=== PATIENT | female | born 1960 | race Caucasian/White ===

== ENCOUNTER 2024-01-14 02:21 | Inpatient (IN) | payer OTHER, SELFPAY ==
[2024-01-13 22:59] VITALS: BP 156/102
[2024-01-13 23:45] LABS: % Basophils 0.3 % (0-2); % Eosinophils 2.6 % (0-6); % Immature Granulocytes 0.2 % (0-0.5); % Lymphocytes 24.3 % (20.5-51.1); % Monocytes 5.4 % (1.7-9.3); % Neutrophils 67.2 % (42.2-75.2); Absolute Eosinophils 0.2 10^3/uL (0-0.7); Absolute Lymphocytes 2.1 10^3/uL (1.2-3.4); Absolute Monocytes 0.5 10^3/uL (0.1-0.6); Absolute Neutrophils 5.8 10^3/uL (1.4-6.5); Hematocrit 32.5 % (37.0-47.0); Hemoglobin 11.1 g/dL (12.0-16.0); Mean Corp Hgb Conc. 34.2 g/dL (33.0-37.0); Mean Corpuscular Hgb 27.7 pg (27.0-31.0); Mean Platelet Volume 8.8 fL (7.4-10.4); Nucleated Red Blood Cells % 0 %; Platelet Count 309 10^3/uL (130-400); Red Blood Cell Count 4.01 10^6/uL (4.20-5.40); Red Cell Dist. Width 14.8 % (11.5-14.5); White Blood Cell Count 8.6 10^3/uL (4.8-10.8)
[2024-01-13 23:46] LABS: Urine Albumin Negative (Neg - Trace); Urine Bilirubin Negative (Negative); Urine Character Clear (Clear); Urine Color Yellow; Urine Glucose Negative (Negative); Urine Ketone Negative (Negative); Urine Leukocyte Negative (Negative); Urine Nitrite Negative (Negative); Urine Occult Blood Negative (Negative); Urine Urobilinogen Negative (Neg - 1+)
--- NOTE | 2024-01-13 23:48 | ED.SKININJ ---
HPI-Injury
General
Chief Complaint: Bite
Source: patient
Time Seen by Provider: 01/13/24 23:18
Travel History
Have you had any contact with someone who has COVID-19?: No
Do you have any symptoms of coronavirus? Fever > 100 degrees, chills, cough, shortness of breath, sore throat, loss of taste or smell, muscle aches, or headache?: No
History of Present Illness-Injury
Initial Injury comments:
This patient is a 63-year-old female who states that on Sunday she noted a area of blistering at the left lateral torso area that became increasingly painful. Since then, she describes it as becoming red, and then mojica, and then also wets. She
was seen in urgent care today and diagnosed with a brown recluse spider bite. She was put on clindamycin and told to proceed to the emergency department if she develops a fever. Later today she developed a fever which prompted her visit here.
Patient describes pain in this area, but denies muscle pain, generalized weakness, chest pain, shortness of breath, abdominal pain, nausea, vomiting, urinary symptoms. Patient is HIV positive, has not had her CD4 count checked in many months, but
most recent count was in the 600 range. Patient does not recall a specific spider bite but [place] is outside often.
Past History
Past History
ED Past Medical History: Other (COPD, HIV)
ED Past Surgical History: None
Social History
Tobacco: Non-smoker
Alcohol: Occasional
Drug: None
Living: alone
Phy Exam
Physical Exam
Physical Exam:
GENERAL: Alert , in no apparent distress
EYE: pupils equal and reactive
NECK: Supple, no significant adenopathy.
ENT: o/p clr, mmm.
CARDIAC: Regular rate and rhythm .
LUNGS: Clear breath sounds bilaterally, no acute respiratory distress, no wheezes/rales/rhonchi
ABDOMEN: Soft, without focal tenderness, no r/g, no cvat
NEUROLOGICAL: Alert and oriented, no focal neuro deficits
SKIN: Warm and dry, at L inferior lateral torso area there is a 16 X 20 cm area of redness with associated area of central ulceration and semi purulent appearing drainage. No fluctuance/crepitus/necrosis/bleeding. No streaking. Area is ttp.
Ulcer is shallow to level of st only.
MUSCULOSKELETAL: No edema, well perfused.
PSYCH: Normal and appropriate interaction.
Course
Orders/Labs/Results
Orders:
Orders
01/13/24 23:23
Electrocardiogram (*1) Urgent
Reason for Study: Other
Other Reason for Exam: Possible Sepsis
Cardiac Monitoring- Treatment ONCE
IV Insert/Care/Rem.- Treatment PRN
O2 Therapy [RESP] Urgent
Titrate/Wean O2 to maintain O2 sat greater than (%): 93
Special Instructions: TO MAINTAIN CONTINUOUS O2 SATS > OR = 93%
Pulse Ox/cont/shift [RESP] Urgent
Quantity: 1
Special Instructions: CONTINUOUS
01/13/24 23:24
EKG- Treatment ONCE
01/13/24 23:36
Complete Blood Count/With Diff Urgent
Comprehensive Metabolic Panel Urgent
Creatine Phosphokinase Urgent
Comment: ADD ON
LDH Urgent
Comment: ADD ON
Lactic Acid Q4H
Comment: ON ICE, CANCEL 2ND ORDER IF FIRST LACTIC ACID LEVEL <2
Phosphorus Urgent
Comment: ADD ON
Reticulocyte Count Urgent
Comment: ADD ON
Uric Acid Urgent
Comment: ADD ON
Urinalysis Reflex To Culture Urgent
Date Specimen was Collected: 01/13/24
Time Specimen was Collected: 23:24
Blood Culture Q30M
SOSA Source: Blood/Venous
Specimen Description:
Comment: FROM 2 SEPARATE SITES
01/13/24 23:46
Blood Culture Urgent
SOSA Source: Blood/Venous
Specimen Description:
01/13/24 23:49
PTT Urgent
Prothrombin Time Urgent
01/13/24 23:52
Add On- LAB Urgent
Tests Added?: reticulocyte count, phosphorus, uric acid, and CPK
01/13/24 23:56
Add On- LAB Urgent
Tests Added?: lactate dehydrogenase
01/14/24 00:30
Ketorolac [Toradol] 15 mg IV NOW STA
01/14/24 00:47
Vancomycin [Vancocin] 1,500 mg 0.9% Sodium Chloride [Nss] 20 ml 0.9% Sodium Chloride 250 ml [Nss] 250 ml IV NOW
01/14/24 00:57
Wound Culture [Wound/Abscess/Other Culture] Urgent
SOSA Source: Abdomen
Specimen Description:
Date Specimen was Collected: 01/14/24
Time Specimen was Collected: 00:46
01/14/24 01:10
Piperacillin/Tazo 3.375 Gram [Zosyn] 3.375 gram in 50 ml IV NOW
01/14/24 02:07
Cefepime HCl [Maxipime] 2,000 mg IV NOW STA
01/14/24 02:08
Admit/Transfer Patient As Directed
Co-Sign Provider:
Level of Care: Inpatient admission
Assign to:: Medical/Surgical
Physician / Group: Mateusz
Diagnosis: Cellulitis / SSTI
Reason for Hospitalization: Cellulitis / SSTI
Expected length of stay greater than two midnights?: Yes
ELOS- Estimated Length of Stay in days: 2
I certify the patient meets the requirements for IP care: Yes
Code Status As Directed
Resuscitation Status: Full Code
01/14/24 02:10
Sterile Water [Sterile Water For Injection] 10 ml IV NOW STA
01/14/24 03:00
Flush (0.9% Sodium Chloride) [Flush (Nss)] See Dose Instructions IV PER PROTOCOL
01/14/24 03:45
Acetaminophen [Tylenol] 650 mg PO Q4HPRN PRN
Albuterol Nebs [Ventolin Nebules] 2.5 mg INH R Q4HPRN PRN
HYDROmorphone [Dilaudid] 0.5 mg IV Q4HPRN PRN
01/14/24 03:45
Consult Notification Routine
Specialty to Notify: Infectious Disease
Date consulting provider notified: 01/14/24
Time consulting provider notified: 08:35
Notified:: Provider
INFECTIOUS DISEASE CONSULT Routine
Consulting Provider: Remberto Rosales
Was physician already notified: No
Reason for consult: Cellulitis / HIV positive
WOUND/OSTOMY CONSULT Routine
Reason for Consult: Lateral abdominal wound
Activity As Directed
Activity Level: Ambulate
I/O [Intake/ Output] As Directed
Frequency: Per unit guidelines
Vital Signs As Directed
Frequency: Per unit guidelines
Oxygen Therapy [O2 Therapy] [RESP] Routine
Titrate/Wean O2 to maintain O2 sat greater than (%): 94
DX Deep Vein Thrombosis Video Routine
01/14/24 05:27
Basic Metabolic Panel IN AM
CD4 Leukocyte Marker Profile [S] Routine
Complete Blood Count/No Diff IN AM
01/14/24 06:00
Ketorolac [Toradol] 15 mg IV Q6HPRN PRN
01/14/24 08:00
Bictegrav/Emtricit/Tenofov [Biktarvy 50-200-25 mg Tablet] 1 tablet PO DAILY
umeclidinium-vilanterol [Anoro Ellipta] 1 inh INH DAILY
01/14/24 10:00
Cefepime HCl [Maxipime] 2,000 mg IV Q8H
01/14/24 18:00
Enoxaparin Sodium [Lovenox] 40 mg SC QPM
Abnormal Lab Results
01/13/24
23:36
RBC 4.01 L 10^6/uL
(4.20-5.40)
Hgb 11.1 L g/dL
(12.0-16.0)
Hct 32.5 L %
(37.0-47.0)
RDW 14.8 H %
(11.5-14.5)
BUN 19 H mg/dl
(7-17)
Glucose 115 H mg/dl
(70-99)
Lactic Acid < 0.5 L mmol/L
(0.7-2.0)
Total Protein 9.5 H g/dl
(6.3-8.2)
01/13/24 23:36
01/13/24 23:36
Vital Signs
Initial and Last Documented VS:
Initial Vital Signs
Temp Pulse Resp BP Pulse Ox
100 F 106 22 156/102 97
01/13/24 22:59 01/13/24 22:59 01/13/24 22:59 01/13/24 22:59 01/13/24 22:59
Last Documented Vital Signs
Temp Pulse Resp BP Pulse Ox
99.5 F 80 18 114/73 98
01/14/24 15:39 01/14/24 15:39 01/14/24 15:39 01/14/24 15:39 01/14/24 15:39
*Critical Care Note
Total Time (30-74mins, 75-104mins- exclusive of procedures): Not Applicable
Update Note
Update Note:
Patient presents to the Emergency Department with skin rash
Number and Complexity of Problems Addressed at the Encounter
� Chronic conditions affecting care:
� Acute Exacerbation and/or Progression of Chronic Illness:
� Differential Diagnosis includes:but not limited to MRSA cellulitis, brown recluse bite, Strept infx, vasculitis, pyoderma granulos, etc.
Amount and/or Complexity of Data to be Reviewed and Analyzed
� I performed an independent evaluation of and my interpretation is:
EKG:
CT:
Xrays:
Laboratory Studies:generally unremkarable,
Other:
� Review of other/old records reveals:
� Clinical information was obtained by an independent historian:
� Prescriptions/Medications Considered but not given:
� Further testing considered but not performed:
Risk of Complications and/or Morbidity or Mortality of Patient Management
� Social determinants of health affecting care:
� Discussion with other providers (PCP, Hospitalists, Consultants, etc):
� Escalation of care including admission/observation vs risk of discharge considered:111am...pt overall stable...given HIV, fever, extent of skin findings, will treat with iv abx and observe overnight. TT to hospitalist. Not
septic, doubt nec fasc (pain manageable, no lab findings to suggest, not rapidly progressive, etc). Overall doubt Brown REcluse Spider bite.
ED Attending Note
-
Portions of this chart may have been created with voice recognition software.� Occasional wrong word or��sound alike� substitutions may have occurred due to the inherent limitations of voice recognition software.
Discharge Plan
Departure
Patient Disposition: Admit
Date of Disposition: 01/14/24
Time of Disposition: 01:12
Admit to: Med/Surg
Presentation/result/management discussed w/ accepting MD/DO: Hospitalist
Condition: Good
Discharge Problem:
Cellulitis
Interventions
Interventions:
*Risk Screen - Suicide Last Done: 01/14/24 03:34
*General Assessment Last Done: 01/13/24 23:42
*Neglect/Abuse Screening Last Done: 01/13/24 22:59
ED- Fall Risk Assessment Last Done: 01/14/24 00:21
*ED COVID-19 Vaccine History Last Done: 01/14/24 03:34
*Nursing Disposition Last Done: 01/14/24 03:34
ED-Skin Assessment Last Done: 01/14/24 00:21
Discharge Date and Time
Discharge Date/Time: 01/14/24 03:35
[2024-01-13 23:59] LABS: Lactic Acid < 0.5 mmol/L (0.7-2.0)
[2024-01-14] VITALS (7 sets, daily range): BP systolic 114–149; BP diastolic 73–102; BMI 19.1
[2024-01-14] LABS: ALT (SGPT) 33 U/L (0-35); AST (SGOT) 33 U/L (14-36); Alkaline Phosphatase 84 U/L (38-126); Blood Urea Nitrogen 19 mg/dl (7-17); Calcium 9.4 mg/dl (8.4-10.2); Carbon Dioxide 26 mmol/L (22-30); Chloride 102 mmol/L (98-107); Glucose 115 mg/dl (70-99); Potassium 4.4 mmol/L (3.5-5.1); Sodium 137 mmol/L (135-145); Total Bilirubin 0.4 mg/dl (0.2-1.3); Total Protein 9.5 g/dl (6.3-8.2); eGFR > 60.00
[2024-01-14 00:03] LABS: Reticulocyte Count 1.1 % (0.4-2.8)
[2024-01-14 00:05] LABS: LDH 226 U/L (120-246); Phosphorus 3.1 mg/dl (2.5-4.5)
[2024-01-14 00:06] LABS: INR 1.04; PT 13.4 Sec (11.4-14.6)
[2024-01-14 00:07] LABS: APTT 33.9 Sec (23.4-35.0)
[2024-01-14 00:12] LABS: Creatine Phosphokinase 101 U/L (30-135); Uric Acid 3.3 mg/dl (2.5-6.2)
--- NOTE | 2024-01-14 00:26 | WOUNDNOTE ---
Addendum entered by Tanya Morales RN 01/14/24 00:26:
left side.
Original Note:
[2024-01-14] MEDS: TORADOL 15 MG IV (00:34)
[2024-01-14] MEDS: VANCOCIN 300 ML IV (00:58)
[2024-01-14] MEDS: VANCOCIN 300 MG IV (00:58)
--- NOTE | 2024-01-14 02:11 | HPS.HSE ---
Family Physician
-
Family Physician: NOT KNOW UNKNOWN - PT DOES
Chief Complaint
-
Wound / Redness
History of Present Illness
Patient is a 63y F with PMH significant for COPD and HIV positivity who presents to ED complaining of pain, swelling and redness of the L side. Patient states that her symptoms started on Sunday with a small collection of clear blisters on
the L flank / lateral abdomen. These were painful at that time. There was no noted bite or injury. No skin lesion appreciated in that area prior to Sunday. Over the next several days, patient states that the blisters coalesced and the area
surrounding them became red, warm and tender. Her symptoms continued to progress and the blisters 'opened up' with clear / yellow drainage appreciated. The area became increasingly painful with larger area of surrounding redness. Today, patient
had chills in addition to her pain and presented to the ED for further evaluation.
Medical History
Past Medical History
Past Medical History: Reports Other
Additional Past Medical History:
COPD
HIV Positive
Past Surgical History: Reports Other
Additional Past Surgical History:
Epidural Hematoma Evacuation (traumatic)
Social History
Tobacco: Former Smoker (Quit smoking about 8 years ago.)
Alcohol: None
Drug: None
Family History
Family History: Not pertinent
Allergies / Home Medications
Allergies reflects when Allergies were last updated in [employer].
Home Medications with original date entered in [employer] [facility]
Allergy/Medication List:
Allergies
Allergy/AdvReac Type Severity Reaction Status Date / Time
Penicillins Allergy Intermediate Rash Verified 01/13/24 23:02
Home Medications
bictegravir 50 mg-emtricitabine 200 mg-tenofovir alafenam 25 mg tablet (Biktarvy) 1 tab PO DAILY 01/13/24
umeclidinium 62.5 mcg-vilanterol 25 mcg/actuation powdr for inhalation (Anoro Ellipta) 1 inh inhalation DAILY 01/13/24
Review of Systems
-
History Source: Patient
A 12 point ROS was completed and negative except as noted: Yes
Constitutional: Reports Fever, Fatigue and Chills
EENT: Denies Sore Throat
Respiratory: Denies Cough or Trouble Breathing
Cardiac: Denies Chest Pain or Palpitations
Abdomen/GI: Denies Abdominal Pain, Nausea, Vomiting or Diarrhea
: Denies Dysuria, Frequency or Flank Pain
Musculoskeletal: Denies Joint Pain or Edema
Skin: Reports Other (Redness, pain, wound, discharge.)
Neurological: Denies Dizzy or Headache
Psych: Denies Depression or Anxiety
Physical Exam
Vital Signs
Vital Signs
Temp Pulse Resp BP Pulse Ox
100 F 92 17 129/85 98
01/13/24 22:59 01/14/24 02:00 01/14/24 02:00 01/14/24 02:00 01/14/24 02:00
Physical Exam
General: Other (63y F in no acute distress.)
HEENT: Moist mucous membranes and PERRLA
Respiratory: Clear; No Wheezes, Rales or Rhonchi
Cardiac: S1/S2 and Regular Rhythm; No Murmur
GI: Soft, Non Tender, Non Distended and Normal Bowel Sounds
Musculoskeletal: No Clubbing, No Cyanosis and No Edema
Skin: Other (Ulcerated lesion over the L lateral abdomen approx 4 cm in diameter with surrounding / overlying dusky or duron skin. Surrounding erythema, induration and tenderness. Mild clear discharge.)
Neuro: AO x 3
Laboratory Results
-
01/13/24 23:36
01/13/24 23:36
Laboratory Results
PT 13.4 Sec (11.4-14.6) 01/13/24 23:49
INR 1.04 01/13/24 23:49
APTT 33.9 Sec (23.4-35.0) 01/13/24 23:49
APTT Cancelled 01/13/24 23:49
Lactic Acid Cancelled 01/14/24 03:30
Total Bilirubin 0.4 mg/dl (0.2-1.3) 01/13/24 23:36
AST 33 U/L (14-36) 01/13/24 23:36
ALT 33 U/L (0-35) 01/13/24 23:36
Alkaline Phosphatase 84 U/L (38-126) 01/13/24 23:36
Impression/Plan
-
A/P: Patient is a 63y F with PMH significant for COPD and hIV positivity who presents to ED complaining of lateral abdominal wall wound / redness / pain x 5 days.
Skin / Soft Tissue Infection
- Admit for further evaluation and treatment.
- ? initial insect bite or similar with secondary infection.
- Possibility of necrotic wound due to bite itself - though less likely and would not significantly alter treatment.
- IV abx with broad spectrum for now given immunocompromised state and appearance of wound.
- Follow for clinical improvement.
- Follow-up culture data and adjust treatment as appropriate.
- ID evaluation for additional recommendations.
- Supportive care with pain control, NSAIDs, etc.
- Follow for any new / worsening symptoms.
HIV Positive
- [facility]
- Maintained on Biktarvy at present which we will continue.
- Last counts were 3-4 months ago with CD4 at that time of around 600.
- Update CD4 counts.
- ID eval as noted above.
COPD without Acute Exacerbation
- Continue daily maintenance inhaler.
- Albuterol PRN.
DVT Prophylaxis: Lovenox
Code Status: Full
[2024-01-14] MEDS: MAXIPIME 2000 MG IV ×2 (02:49→10:04)
[2024-01-14] MEDS: STERILE WATER FOR INJECTION 10 ML IV ×2 (02:50→10:04)
[2024-01-14 06:06] LABS: Hematocrit 29.4 % (37.0-47.0); Hemoglobin 9.8 g/dL (12.0-16.0); Mean Corp Hgb Conc. 33.3 g/dL (33.0-37.0); Mean Corpuscular Hgb 27.1 pg (27.0-31.0); Mean Corpuscular Volume 81.4 fL (81.0-99.0); Platelet Count 279 10^3/uL (130-400); Red Blood Cell Count 3.61 10^6/uL (4.20-5.40); Red Cell Dist. Width 14.7 % (11.5-14.5); White Blood Cell Count 7.1 10^3/uL (4.8-10.8)
[2024-01-14 06:32] LABS: Blood Urea Nitrogen 14 mg/dl (7-17); Calcium 8.5 mg/dl (8.4-10.2); Carbon Dioxide 24 mmol/L (22-30); Chloride 108 mmol/L (98-107); Estimated Creatinine Clearance 71 ml/min; Glucose 112 mg/dl (70-99); Potassium 4.3 mmol/L (3.5-5.1); Sodium 138 mmol/L (135-145); eGFR > 60.00
[2024-01-14] MEDS: SPIRIVA RESPIMAT 2.5 MCG 2 PUFF INH (07:54)
[2024-01-14] MEDS: STRIVERDI RESPIMAT 2 PUFF INH (07:54)
--- NOTE | 2024-01-14 08:08 | PHA.VAN.IN ---
Assessment
- Assessment
Renal Function: Appears similar to baseline
Concomitant Antimicrobials: cefepime; bictegravir/emtricitabine/TAF
AUC Dosing Plan
- Dosing Variables
Dosing Weight (kg): 59
Dosing CrCl (ml/min): 71
Vd coefficient (L/kg): 0.7
Patient may have higher clearance than population PK predicts with BMI < 20
Utilized IBW for dosing weight and CrCl range calculated with TBW and IBW
- Empiric Dosing
Initial / Loading Dose: 1500mg - 01/13 00:58
Maintenance Regimen: Vanc 750mg Q12H starting at 1800
Estimated AUC (mcg*h/mL): 550 - 592
Estimated Peak (mcg*h/mL): 32.5 - 34
Estimated Trough (mcg/ml): 15.3 - 17
Estimated Half Life (H): 10.1 - 10.9
- Monitoring
No levels ordered at this time: consider levels in next few days
Pharmacokinetics Vancomycin I
- -
Patient Age: 63
Patient Sex: Female
Vancomycin Day #: 1
Indication: Skin And Soft Tissue
Requesting Provider: Dr. Child
Pertinent Antimicrobial Allergies:
penicillins - rash
Height / Weight:
Height 5 ft 6 in
Actual Weight 53.705 kg
IBW in k.3
Pertinent Past Medical History: BMI ~19
- Vital Signs / Lab Results
Temp Pulse Resp BP Pulse Ox
100.2 F 74 16 120/82 96
01/14/24 03:34 01/14/24 07:59 01/14/24 07:59 01/14/24 03:34 01/14/24 07:59
Lab Results - Hematology
01/13/24 01/14/24
23:36 05:27
WBC 8.6 7.1
Lab Results - Chemistry
01/13/24 01/14/24
23:36 05:27
BUN 19 H 14
Creatinine 0.8 0.7
Estimated Creat Clear 71
Albumin 4.0
01/13/24 01/14/24
23:36 03:30
Lactic Acid < 0.5 L Cancelled
Lab Results - Urine
01/13/24
23:36
Urine Nitrite (Reflex) Negative
Leukocyte Esterase Rfl Negative
[2024-01-14] MEDS: BIKTARVY 50-200-25 MG TABLET 1 TABLET PO (08:26)
--- NOTE | 2024-01-14 10:12 | CON.ID ---
Addendum entered and electronically signed by Adeola Cisse MD 01/14/24 12:49:
Asked my office staff to get most recent viral load and CD4 from [facility] - results found 10/30/23 viral load >200,000 and CD4 229.
Rediscussed with patient in person.
Shares that she self discontinued medication due to multiple self diagnosed lipomas. Reports these lesions seem smaller since stopping. She can now only show me a single lesion on the left forearm <2cm, nontender. Does look to be a lipoma on my
exam.
At her last visit to HIV provider she was instructed to restart previous ARV (biktarvy), which she has done. She reports no missed doses x5 weeks.
We again reviewed that with acute infection I expect a falsely low CD4 count as her T cells would be fighting the current infection.
Would repeat viral load/CD4 in a few weeks once current infection resolved
Emphasized to patient that whether myself or her current HIV provider it will be essential that she continues current ARVs and has close follow up to confirm she is responding to therapy. She expresses understanding and agreement.
Original Note:
Consultation
-
Date/Time Consultation Requested: 01/14/24 3:45
Date/Time Consultation Performed: 01/14/24 10:13
Requesting Provider: Dr Rosales
Performing Provider: Dr Cisse
Reason for Consultation: Cellulitis / HIV positive
Chief Complaint / Past History
Chief Complaint
cellulitis
History of Present Illness
Ms Moon is a 63 year old with history of HIV on biktarvy CD4 ~600 when last assessed 3-4 months ago, unsure of viral load but reports no recent diagnosis of treatment failure or medication changes, she was diagnosed in , COPD. Reports
compliance with ARVs. Presented here for progression of a vesicular wound that then ulcerated. Reports no bite or injury, rash began spontaneously about 1 week ago. She was seen in urgent care for rash of let torso - as small, vesicular, painful
then coalesced, opened then drained. Reported fever earlier in the week. An order for culture was sent to [facility] per patient (no report available in [facility] yet). Patient was prescribed clindamycin and took two doses. She then developed chills and
per provider instructions she presented to the ER later the same day. blood and wound cultures in progress. Has received vancomycin and cefepime. Biktarvy continued inpatient. ID is consulted for assistance with management.
H/o treated latent TB decades ago she volunteers it was 'calcified' without me prompting her, she recall 9+ months of INH. Exposure was a family member in childhood. Does report 7 lbs unintentional weight loss recently then stabilized. Chronic
cough x 6+ weeks. Some possible night sweats before she developed current infection.
Since arrival here she has not had any kevyn fevers - Ts have been as elevated as 100.0, bp stable, HRs 80s-100s, wbc 8.6 to 7.1, hgb 9.8, plt 279, cr 0.7, lactic acid <0.5, t bili 0.4, ast 33, alt 33, ck 101,blopod cultures in progress 10 minutes
apart, wound culture was obtained and gram stain is pending. Patient currently on vancomycin and cefepime. ID is consulted for assistance with management.
Past History
Additional Past Medical History:
as per hpi
Reports treated latent TB (INH x9 months decades ago)
Additional Past Surgical History:
Epidural Hematoma Evacuation (traumatic)
Allergy History:
Penicillins Allergy (Intermediate, Verified 01/13/24 23:02)
Rash
Medications Reviewed: Yes
Social History
Tobacco: Former Smoker
Alcohol: None
Drug: None
Family History
Family History: Not Pertinent
Review of Systems
Review of Systems
General: Fever and Chills
All systems: All other systems were reviewed and were negative
Vital Signs
Temp Pulse Resp BP Pulse Ox
99.5 F 74 16 122/75 96
01/14/24 07:05 06/17/24 07:59 01/14/24 07:59 01/14/24 07:05 01/14/24 07:59
Physical Exam
Physical Exam
Constitutional: No Acute Distress
Cardiovascular: Regular Rate and S1/S2; Negative Murmur or Rub
Pulmonary: Clear and Symmetric; Negative Wheezes, Rales or Rhonchi
Gastrointestinal: Soft, Non Tender, Non Distended and Normal Bowel Sounds
Skin: Warm and Dry; Negative Rash or Jaundice
Wound: Other (ulcerated, superficial wound on the lateral abdominal wall with surrounding erythema about 2 inches around the wound - no purulent drainage, no crepitus, no fluctuance, drainage is serous, area mildly warm, has not extended beyond pen
markings)
Lab / Diagnostic Study Results
01/14/24 05:27
01/14/24 05:27
Abs Immat Gran (auto) 0.0 10^3/uL (0-0.05) 01/13/24 23:36
Absolute Neuts (auto) 5.8 10^3/uL (1.4-6.5) 01/13/24 23:36
Absolute Lymphs (auto) 2.1 10^3/uL (1.2-3.4) 01/13/24 23:36
Absolute Monos (auto) 0.5 10^3/uL (0.1-0.6) 01/13/24 23:36
Absolute Basos (auto) 0.0 10^3/uL (0-0.2) 01/13/24 23:36
Immature Gran % 0.2 % (0-0.5) 01/13/24 23:36
Neutrophils % 67.2 % (42.2-75.2) 01/13/24 23:36
Lymphocytes % 24.3 % (20.5-51.1) 01/13/24 23:36
Monocytes % 5.4 % (1.7-9.3) 01/13/24 23:36
Eosinophils % 2.6 % (0-6) 01/13/24 23:36
Basophils % 0.3 % (0-2) 01/13/24 23:36
PT 13.4 Sec (11.4-14.6) 01/13/24 23:49
INR 1.04 01/13/24 23:49
Lactic Acid Cancelled 01/14/24 03:30
Microbiology Results
Micro:
01/14/24 00:57 Wound Culture - Pending
Abdomen Gram Stain - Pending
01/13/24 23:46 Blood Culture - Pending
Blood/Venous
01/13/24 23:36 Blood Culture - Pending
Blood/Venous
Assessment / Plan
Probable Community Acquired S aureus Infection, less likely spider bite
- [facility] not yet resulted
- wound culture and blood cultures in progress
- CT a/p is planned by primary team
- start keflex/doxycycline tentatively x10 days
- follow up in my clinic next week
- patient requesting DC which is reasonable, will follow cultures and call if further cultures needed or antibiotics need adjustment
HIV disease
- by report under good control, with CD4 >500
- would not run CD4 in the setting of acute infection which will make it falsely low
- has telehealth appointment with her HIV providers tomorrow - [facility] - notified them of her admission as well [phone]
Chronic Cough
Treated Latent TB
- CXR is planned
- doesnt require isolation at this time; risk of reactivation very low
Care Review
Plan reviewed with: Physician (Dr Patel - dispo)
--- NOTE | 2024-01-14 10:53 | W.PN.UPDATE ---
Update Note
Progress Note Update
Seen and examined independent of overnight physician. Nonbillable. States of improvement in left flank pain. States the wound has improved. Unclear about development of left wound.
General: Other (63y F in no acute distress.)
HEENT: Moist mucous membranes and PERRLA
Respiratory: Clear; No Wheezes, Rales or Rhonchi
Cardiac: S1/S2 and Regular Rhythm; No Murmur
GI: Soft, Non Tender, Non Distended and Normal Bowel Sounds
Musculoskeletal: No Clubbing, No Cyanosis and No Edema
Skin: Other (Ulcerated lesion over the L lateral abdomen approx 4 cm in diameter with surrounding / overlying dusky or duron skin. Surrounding erythema, induration and tenderness. Mild clear discharge.)
A/P: Patient is a 63y F with PMH significant for COPD and hIV positivity who presents to ED complaining of lateral abdominal wall wound / redness / pain x 5 days.
Skin / Soft Tissue Infection
- ? initial insect bite or similar with secondary infection.
- Possibility of necrotic wound due to bite itself - though less likely and would not significantly alter treatment.
- IV abx with broad spectrum for now given immunocompromised state and appearance of wound.
- Follow for clinical improvement.
- Follow-up culture data and adjust treatment as appropriate.
- ID evaluation for additional recommendations.
- Supportive care with pain control, NSAIDs, etc.
- Follow for any new / worsening symptoms.
- Discussed with radiology will check CT abdomen with IV contrast to assess for the deep abscess
- Wound with purulent drainage but improvement in erythema-demarcation noted
HIV Positive
- [facility]
- Maintained on Biktarvy at present which we will continue.
- Last counts were 3-4 months ago with CD4 at that time of around 600.
- Update CD4 counts.
- ID eval as noted above.
COPD without Acute Exacerbation
- Continue daily maintenance inhaler.
- Albuterol PRN.
Underweight
-Dietary
DVT Prophylaxis: Lovenox
Code Status: Full
--- NOTE | 2024-01-14 10:59 | WOUNDNOTE ---
WOC RN note: Patient admitted with soft tissue skin infection, cellulitis.
See H&P for complete history.
PMH: COPD, HIV+, epidural
Wound Location and type/assessment: Patient admitted with:
Appetite:
Pressure redistribution devices in place:
Plan:
Will confirm orders with hospitalist and update nurse.
Updated care plan and will follow as needed.
Note to case management of equipment requested for discharge:
Recommend follow up at wound care center upon discharge.
--- NOTE | 2024-01-14 11:05 | WOUNDNOTE ---
[facility] RN note: Patient admitted with soft tissue skin infection, cellulitis.
See H&P for complete history.
PMH: COPD, HIV+ on Biktarvy, epidural hematoma evacuation, former smoker.
Wound Location and type/assessment: Patient admitted with: L flank dermal wound r/t skin infection. Wound pink with yellow/gutiérrez fibrin. +Diffuse erythema around wound less than ED wound photo. No crepitus. Minimal local induration. Moderate serous
drainage.
Appetite: on regular diet.
Pressure redistribution devices in place: Tripvi Accumax. Patient mobile.
Plan: L flank dressing changed. Dr. Cisse was in and was agreeable to local wound with daily adaptic, abd pad. Instructed patient wound care and hand hygiene with wound care. Some wound care supplies given. Patient to follow up with
[facility].
Updated discharge instructions as patient may be discharged today.
--- NOTE | 2024-01-14 15:10 | CM ---
Initial assessment completed with patient who lives alone in a 2 story cottage with basement, B/B on 2nd floor with 1/2 bath on 1st, 4 steps to enter, no DME or in-home services, [employer] was independent, drove and worked PT, no psychiatric
hospitalizations,Pharmacy is [facility] in [place], PCP is at a clinic and she does not remember the name of physician. Wound Nurse trained on care for wounds. Feels comfortable with wound care. Anticipate no needs at discharge.
--- NOTE | 2024-01-14 16:40 | W.DCSUMMARY ---
Discharge Summary
Discharge Data
Date of Admission: 01/14/24
Date of Discharge: 01/14/24
-
Pending Results: No
Hospital Course
63-year-old female past medical history of HIV, latent TB, COPD is presented with left flank/abdominal pain and cellulitis. Patient stated initially started as a blister which eventually coalesced and the area surrounding them became red, warm and
tender. Her symptoms continued to progress and the blisters 'opened up' with clear / yellow drainage appreciated. The area became increasingly painful with larger area of surrounding redness. Patient was admitted to hospital. Patient was started
on vancomycin and cefepime. Infectious disease was consulted. Patient stated improvement in her rash. Patient was also eval by wound care. Patient underwent CT abdomen pelvis which was negative for deep abscess. Did show constipation patient
was recommended to start bowel regimen. Per infectious disease patient can be discharged on Keflex and doxycycline. Please see infectious disease correspondence for complete details. Patient was afebrile. Patient be discharged home with
recommendation to follow-up outpatient with infectious disease for follow-up. Patient agreed and verbalized understanding and she was eager to get home as she has appointment with her intrusion analyst tomorrow.
Discharge Plan
-
Patient Disposition: Home (Routine Discharge)
Discharge Diagnosis/Procedures: Left flank/abdomen cellulitis
Constipation
Condition: Fair
Diet: Regular
Activity: As tolerated
Driving Restrictions: As prior to admission
Others Tests: Recommend to repeat viral load/CD4 in a few weeks once current infection resolved
Activity Restrictions/Additional Instructions:
Wound Care Instructions
L flank wound care-clean with saline or soap and water, adaptic, ABD pad, change daily and as needed for drainage.
Follow with ID physician Dr. Cisse.
Follow up at wound care center if needed, call for an appointment.
Doxycycline Precautions
�� Take with at least 6 oz H2O
�� Take with food but no calcium containing products like milk or cheese
�� Ideally you would not take any multivitamins, calcium, magnesium or zinc containing products.
�� If you must take one of these products make sure that the pills are by at least 3 hours.
�� Sit up for at least 30 minutes after each dose to prevent heartburn.
�� Your skin will be more sensitive to the sun while you are on doxycycline - it will be very easy for you to get a sunburn.
Referrals:
UNKNOWN - PT DOES,NOT KNOW [Family Provider] -
Adeola Cisse MD [Active] - in one to two weeks
Prescriptions:
New
doxycycline hyclate 100 mg Capsule
100 mg PO Q12 10 Days Qty: 20 0RF
cephalexin 500 mg Capsule
500 mg PO QID 10 Days Qty: 40 0RF
polyethylene glycol 3350 [Gavilax] 17 gram powder in packet
17 g PO DAILY Qty: 30 0RF
bisacodyl [Dulcolax (bisacodyl)] 5 mg tablet,delayed release (DR/EC)
5 mg PO HS 2 Days Qty: 2 0RF
Continued
Anoro Ellipta 62.5-25 mcg/actuation Blister With Device
1 inh INHALATION DAILY
Biktarvy 50-200-25 mg Tablet
1 tab PO DAILY
Discharge Orders:
Discharge Patient (As Directed); Ordered 01/14/24
Ordered By: Shen Patel
Discharge Date and Time
Print Language: GUYANESE
--- NOTE | 2024-01-14 16:43 | CM ---
Patient has been medically cleared for discharge to home with no additional skilled services. Patient has arranged for transport home.
[2024-01-14] MEDS: KEFLEX 500 MG PO (17:05)
--- NOTE | 2024-01-14 18:07 | PTCARENOTE ---
patient d/c home. Medical record release form filled out and sent to medical records. Gave patient number for medical records to follow up. Patient requesting chest xray and ct results. Patient iv pulled and d/c paperwork explained and reviewed
[2024-01-15 16:41] LABS: CD4 % of Cells Analyzed 22 % (32-64); CD4 Absolute Count 383 cells/uL (430-1800)
== END 2024-01-14 18:15 | disposition home or self-care (01) | DRG 603 ==
LOC: 2 NORTH 02:21
PROVIDERS: ADMITTING PHYSICIAN Hospitalist; ATTENDING PHYSICIAN Hospitalist; EMERGENCY PHYSICIAN Emergency Medicine; OTHER PHYSICIAN Student in an Organized Health Care Education/Training Program
DX: L03.311 Cellulitis of abdominal wall (principal); J44.9 Chronic obstructive pulmonary disease, unspecified; Z21 Asymptomatic human immunodeficiency virus [HIV] infection status; K59.00 Constipation, unspecified; Z22.7 Latent tuberculosis; Z79.899 Other long term (current) drug therapy; Z87.891 Personal history of nicotine dependence
CPT/HCPCS: 71046; 74177; 80048; 80053; 81003; 82550; 83605; 83615; 84100; 84550; 85025; 85027; 85045; 85610; 85730; 86361; 87040; 87070; 87205; 93005; 94640; 96374; 99285; Q9967

== ENCOUNTER → 2024-01-29 08:02 | Outpatient (REF) | payer OTHER, SELFPAY | LOC: WOUND 08:02 | PROVIDERS: ATTENDING PHYSICIAN Surgery; FAMILY PHYSICIAN Student in an Organized Health Care Education/Training Program | DX: S31.109A Unspecified open wound of abdominal wall, unspecified quadrant without penetration into peritoneal cavity, initial encounter (principal); W57.XXXA Bitten or stung by nonvenomous insect and other nonvenomous arthropods, initial encounter | CPT/HCPCS: 99203 ==

== ENCOUNTER → 2024-02-05 10:45 | Outpatient (REF) | payer OTHER, SELFPAY | LOC: WOUND 10:45 | PROVIDERS: ATTENDING PHYSICIAN Surgery | DX: S31.109A Unspecified open wound of abdominal wall, unspecified quadrant without penetration into peritoneal cavity, initial encounter (principal); X58.XXXA Exposure to other specified factors, initial encounter | CPT/HCPCS: 99212 ==

== ENCOUNTER → 2024-08-20 12:40 | Outpatient (REF) | payer OTHER, SELFPAY | LOC: RCS 12:40 | PROVIDERS: ATTENDING PHYSICIAN Internal Medicine Interventional Cardiology; FAMILY PHYSICIAN Nurse Practitioner | DX: R07.9 Chest pain, unspecified (principal) | CPT/HCPCS: 93017; 93350 ==

== ENCOUNTER → 2025-01-28 14:31 | Outpatient (REF) | payer OTHER, SELFPAY | LOC: HWRAD 14:31 | PROVIDERS: FAMILY PHYSICIAN Nurse Practitioner | DX: Z87.81 Personal history of (healed) traumatic fracture (principal) | CPT/HCPCS: 71271 ==

== ENCOUNTER 2025-04-05 15:39 | Emergency (ER) | payer OTHER, SELFPAY ==
[2025-04-05 15:45] VITALS: BP 148/113
[2025-04-05 17:04] VITALS: BMI 22.5
--- NOTE | 2025-04-05 17:15 | ED.GENMED ---
History of Present Illness
General
Chief Complaint: Headache
Time Seen by Provider: 04/05/25 16:52
History of Present Illness
History of Present Illness:
64-year-old female presents to the emergency department for evaluation of intermittent headaches ongoing for the past several months. Headaches seem to come and go without obvious provoking factors or palliating factors. She typically does not
take any medication when the headache strikes simply waits it out and the headaches eventually resolved. She does not have headaches every day. She notes she does have a family history of aneurysms and is scheduled for an outpatient MRA next
month. Headache is currently resolved and she has no complaints at this time. Denies any exertional or Valsalva based headache. No associated vision changes or vomiting.
Past History
Past History
ED Past Medical History: Other (COPD, HIV)
ED Past Surgical History: None
Social History
Tobacco: Non-smoker
Alcohol: Occasional
Drug: None
Living: alone
Review of Systems
Review of Systems
Allergies reviewed?: Yes
All Other Systems: ROS reviewed and negative except as documented in HPI and ROS
Phy Exam
Physical Exam
Physical Exam:
GEN: Well appearing, NAD, WDWN
HEENT: Oral mucosa moist, no scleral icterus, no nasal congestion
Cardiac: Regular rate
Lung: No respiratory distress, no tachypnea
MSK: No gross deformity or injuries
Skin: Good color, no pallor or jaundice, no rashes
Neuro: AO x3; CN II-XII grossly intact. BUE strength 5/5 in all saavedra, sensation intact and symmetric. BLE strength 5/5 in all saavedra, sensation intact and symmetric
Psych: Calm, cooperative
Course
Orders/Labs/Results
Orders:
Orders
04/05/25 15:50
CT Head W/o Iv Contrast Urgent
Comment:
Reason For Exam: prolonged headache, history of bleed, HTn
Vital Signs
Initial and Last Documented VS:
Initial Vital Signs
Temp Pulse Resp BP Pulse Ox
98.8 F 85 17 148/113 98
04/05/25 15:45 04/05/25 15:45 04/05/25 15:45 04/05/25 15:45 04/05/25 15:45
Last Documented Vital Signs
Temp Pulse Resp BP Pulse Ox
98.8 F 85 17 148/113 98
04/05/25 15:45 04/05/25 15:45 04/05/25 15:45 04/05/25 15:45 04/05/25 17:15
MDM/Problems Addressed
MDM/Problems Addressed:
At this time the patient is neurologically intact with no focal deficits. Given the duration of the headache and waxing and waning nature I do not have a suspicion for intracranial neoplasm or hemorrhage thus I have a low suspicion that CT scan
will provide any utility. I do agree with outpatient brain MRI. As she is asymptomatic at this time I will offer prescription migraine relief medication and ED return parameters are discussed
*Pulse Oximetry
SaO2: 98
Oxygen Mode of Delivery: Room air
Patient hypoxic: no
*Critical Care Note
Total Time (30-74mins, 75-104mins- exclusive of procedures): Not Applicable
ED Attending Note
-
Portions of this chart may have been created with voice recognition software.� Occasional wrong word or��sound alike� substitutions may have occurred due to the inherent limitations of voice recognition software.
Discharge Plan
Departure
Patient Disposition: Home (Routine Discharge)
Date of Disposition: 04/05/25
Time of Disposition: 17:15
Patient with high blood pressure during this ER visit?: No
Discharge Problem:
Frequent headaches
Instructions: Headache, Adult (DC)
Prescriptions:
New
wydkwphlwu-wcxdxenkyasls-tfya [Fioricet] 50-300-40 mg capsule
1 cap PO TID PRN (Reason: headache) Qty: 20 0RF
No Action
Anoro Ellipta 62.5-25 mcg/actuation Blister With Device
1 inh INHALATION DAILY
Biktarvy 50-200-25 mg Tablet
1 tab PO DAILY
doxycycline hyclate 100 mg Capsule
100 mg PO Q12 10 Days Qty: 20 0RF
cephalexin 500 mg Capsule
500 mg PO QID 10 Days Qty: 40 0RF
polyethylene glycol 3350 [Gavilax] 17 gram powder in packet
17 g PO DAILY Qty: 30 0RF
bisacodyl [Dulcolax (bisacodyl)] 5 mg tablet,delayed release (DR/EC)
5 mg PO HS 2 Days Qty: 2 0RF
Interventions
Interventions:
*Risk Screen - Suicide Last Done: 04/05/25 15:49
*General Assessment Last Done: 04/05/25 15:49
*Neglect/Abuse Screening Last Done: 04/05/25 15:49
*ED- Fall Risk Assessment Last Done: 04/05/25 17:04
*ED COVID-19 Vaccine History Last Done: 04/05/25 15:49
*Nursing Disposition Last Done: 04/05/25 17:44
ED- Neurological Assessment Last Done: 04/05/25 17:04
Discharge Date and Time
Discharge Date/Time: 04/05/25 17:45
Print Language: GAMBIAN
== END 2025-04-05 17:45 | disposition home or self-care (01) ==
LOC: EMR 15:39
PROVIDERS: EMERGENCY PHYSICIAN Student in an Organized Health Care Education/Training Program; FAMILY PHYSICIAN Nurse Practitioner
DX: R51.9 Headache, unspecified (principal); J44.9 Chronic obstructive pulmonary disease, unspecified; I10 Essential (primary) hypertension; Z21 Asymptomatic human immunodeficiency virus [HIV] infection status
CPT/HCPCS: 99282